=== PATIENT | female | born 1985 | race Caucasian/White ===

== ENCOUNTER 2017-02-10 18:01 | Emergency (ER) | payer OTHER ==
[~2017-02-10 18:01] MED LIST: ABILIFY PO; AMOXICILLIN; AMOXICILLIN500 M1 PO; BACTRIM DS TABL1 TA1 PO; BACTRIM DS TABL1 TAB PO; CIPRO PO; CLARITIN10 M1 PO; CLEOCIN PO; FIORICET1 TAB PO; FLEXERIL10 M1 PO; FLEXERIL10 MG PO; IBUPROFEN800 MG PO; KEFLEX PO; KLONOPIN0.5 MG PO; LORTAB 10-5001 EACH PO; MEDROL DOSEPAK4 MG PO; MOTRIN400 MG PO; NAPROSYN500 MG PO; NO MEDICATIONS; PHENERGAN25 MG PO; PRENATAL MULITV1 TAB; PYRIDIUM PO; ULTRAM PO; VOLTAREN75 MG PO; WELLBUTRIN PO; ZITHROMAX PO; ZOFRAN ODT4 MG PO; ZOFRAN PO
== END 2017-02-10 18:24 | disposition home or self-care (01) ==
LOC: CFTX 18:01
DX: J02.0 Streptococcal pharyngitis (principal); F31.9 Bipolar disorder, unspecified; Z91.040 Latex allergy status
CPT/HCPCS: 87880; 96372; 99283; J0561; J1100

== ENCOUNTER 2017-04-26 12:00 | Inpatient (IN) | payer OTHER ==
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
--- NOTE | ~2017-04-26 | HP ---
Unit #: [id number] #: [id number] Patient: RUBY PICHARDO [id number] [place] [address] [id number] I MR#: [id number] NAME: RUBY PICHARDO ROOM: [facility] Age: 31 Sex: F Admission Date: 04/26/2017 : 1985 Attending Physician: Braxton Kwong M.D. Admitting Physician: Braxton Kwong M.D. Primary Care Physician: Tyler Pichardo M.D. HISTORY AND PHYSICAL HISTORY OF PRESENT ILLNESS Ruby is a 31 year old admitted to 2 [facility] with depression, increased anxiety and verbalizing wanting to hurt herself. PAST MEDICAL HISTORY 1. Seizure disorder 2. History of migraines 3. Obstructive sleep apnea 4. Morbid obesity PAST SURGICAL HISTORY x2 ALLERGIES No known drug allergies. SOCIAL HISTORY She does not smoke. Drinks alcohol rarely and denies illicit drug use. FAMILY HISTORY Medically noncontributory. REVIEW OF SYSTEMS CONSTITUTIONAL: No fever or chills. HEENT: Denies any sore throat, ear pain or runny nose. CARDIOVASCULAR: Denies chest pain, irregular heart rhythm or palpitations. CHEST: Denies shortness of breath or cough. No hemoptysis. GASTROINTESTINAL: Denies nausea, vomiting, diarrhea or chronic constipation. ENDOCRINE: Denies history of increased thirst or urination. No recent significant weight loss or gain. GENITOURINARY: Denies dysuria, frequency, or hematuria. SKIN: Denies any rashes. HEMATOLOGIC: Denies history of increased bleeding or bruising. MUSCULOSKELETAL: Denies any hot, swollen joints. No generalized muscle pain. NEUROLOGIC: Denies problems with vision or speech. No frequent, severe headaches. No numbness, tingling or weakness in any extremities. Denies loss of bladder or bowel control. CURRENT MEDICATIONS 1. Carafate 1 gram a.c. and h.s. Unit #: [id number] #: [id number] Patient: RUBY PICHARDO 2. Desyrel 50 mg q.h.s. 3. Protonix 40 mg b.i.d. 4. Topamax 100 mg b.i.d. 5. Milk of Magnesia p.r.n. 6. Maalox p.r.n. 7. Tylenol p.r.n. 8. Imitrex p.r.n. 9. Klonopin 1 mg t.i.d. 10. Paxil 20 mg q day PHYSICAL EXAMINATION GENERAL: Alert, well-nourished, in no apparent distress. VITAL SIGNS: Blood pressure 124/78, heart rate 80, respirations 16, temperature 98.6. WEIGHT: 220 pounds. HEIGHT: 5 foot 4 inches SKIN: Warm and dry without rash or lesion. HEENT: Normocephalic. TMs not viewed. Oral and nasal passages clear. Conjunctivae clear. Pupils equal, round and reactive to light and accommodation. Extraocular movements intact. NECK: Supple without lymphadenopathy or thyromegaly. HEART: Regular rate and rhythm without murmur. LUNGS: Clear. ABDOMEN: Soft, nontender. : Not done. EXTREMITIES: No evidence of cyanosis, clubbing or edema. Moves all extremities without focal deficit. NEUROLOGICAL: Grossly within normal limits. Cranial Nerves: II: Visual aguiar are intact. III, IV AND : Extraocular movements are intact. Pupils are equal, round and reactive to light. V: Facial sensation is grossly normal. VII: Facial movements and expression are normal. VIII: Auditory acuity grossly intact. IX, X: Uvula is midline. Phonation is normal. XI: Patient shrugs shoulders and turns head normally. XII: Tongue protrudes in the midline. Sensory and Motor Function: Sensory and motor sensation is grossly normal. Motor: moves all extremities well. Coordination: Gait is normal. Deep Tendon Reflexes: Intact. IMPRESSION Psychiatric admission RECOMMENDATIONS PSYCHIATRIC: Per psychiatrist. MEDICAL: I see no contraindications to participating in facility's activities. MEDICAL PROGNOSIS Good. MEDICAL CONDITION Stable. Unit #: [id number] #: [id number] Patient: RUBY PICHARDO Dictated by... Vonnie Hodge P.A.-C. for Ana Laura Mckinney/sue TD: 04/27/2017 01:35 JOB #: [id number] HISTORY AND PHYSICAL Page 1 of 1 X Vonnie Hodge X HISTORY AND PHYSICAL
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
[2017-04-27 10:15] LABS: BASOPHIL# 0.1 X10e3 (0-0.3); BASOPHIL% 0.9 % (0-2.5); EOSINOPHIL# 0.2 X10e3 (0-0.7); EOSINOPHIL% 2.3 % (0.0-7.0); HEMATOCRIT 38.6 % (35.0-45.0); HEMOGLOBIN 12.7 gm/dL (12.0-16.0); LYMPHOCYTE# 2.3 X10e3 (1.0-3.5); LYMPHOCYTE% 33.3 % (17.0-45.0); MEAN CELL VOLUME 86.1 FL (83-96); MEAN CORPUSCULAR HEMOGLOBIN 28.3 PG (28-34); MEAN CORPUSCULAR HGB CONC 32.9 g/dL (30-36); MEAN PLATELET VOLUME 8.4 FL (6.5-11.5); MONOCYTE# 0.4 X10e3 (0-1.0); MONOCYTE% 6.3 % (3.0-12.0); NEUTROPHIL% 57.2 % (40-75); PLATELET COUNT 236 X10e3 (140-420); RED BLOOD COUNT 4.49 X10e (3.90-5.30); RED CELL DISTRIBUTION WIDTH 14.6 % (11.0-15.5)
[2017-04-27 10:18] LABS: DIFF IND NO
[2017-04-27 10:36] LABS: ALBUMIN SERUM 3.6 g/dL (3.5-5.0); BILIRUBIN,TOTAL 0.5 mg/dL (0.2-2.0); BUN/CREATININE RATIO 11.11; CALCIUM SERUM 9.3 mg/dL (8.4-10.2); CREATININE SERUM 0.9 mg/dL (0.6-1.4); GLOM FILT RATE Estimated 85.3 mL/min (>60); POTASSIUM 4.3 mmol/L (3.5-5.1); PROTEIN TOTAL SERUM 6.8 g/dL (6.0-8.3)
[2017-04-28 09:41] LABS: URINE APPEARANCE CLOUDY; URINE BILIRUBIN NEG (NEG); URINE BLOOD 3+ (NEG); URINE COLOR YELLOW; URINE GLUCOSE NEG (NEG); URINE KETONE NEG (NEG); URINE LEUKOCYTE ESTERASE NEG (NEG); URINE NITRATE NEG (NEG); URINE PROTEIN NEG (NEG); URINE SPECIFIC GRAVITY 1.009 (1.003-1.035); URINE UROBILINOGEN 0.2 MG/DL (NEG)
[2017-04-28 09:48] LABS: URINE BACTERIA AUWI 2+ (NEGATIVE); URINE SQUAMOUS EPITHELIAL CELL MOD /[HPF]; UWBCS1 AUWI 25-50 (0-5)
[2017-04-28 10:07] LABS: URINE MUCUS PRESENT
[2017-04-28 11:23] LABS: AMPHETAMINE NEG (NEG); BARBITURATES NEG (NEG); BENZODIAZEPINES NEG (NEG); COCAINE NEG (NEG); MARIJUANA NEG (NEG); OPIATES NEG (NEG); TRICYCLIC ANTIDEPRESSANTS NEG (NEG); U METHADONE NEG (NEG)
== END 2017-04-28 14:55 | disposition home or self-care (01) | DRG 885 ==
LOC: P2L 15:38
PROVIDERS: Psychiatry & Neurology Psychiatry
DX: F33.9 Major depressive disorder, recurrent, unspecified (principal); R45.851 Suicidal ideations; G40.909 Epilepsy, unspecified, not intractable, without status epilepticus; E66.9 Obesity, unspecified; K21.9 Gastro-esophageal reflux disease without esophagitis; G47.33 Obstructive sleep apnea (adult) (pediatric)
CPT/HCPCS: 80053; 80307; 81003; 84703; 85025

== ENCOUNTER 2017-05-11 15:19 | Emergency (ER) | payer OTHER ==
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
== END 2017-05-11 18:05 | disposition home or self-care (01) ==
LOC: CED 15:19 → CFTX 15:19
DX: S92.411A Displaced fracture of proximal phalanx of right great toe, initial encounter for closed fracture (principal); L03.317 Cellulitis of buttock; F31.9 Bipolar disorder, unspecified; G40.909 Epilepsy, unspecified, not intractable, without status epilepticus; V89.2XXA Person injured in unspecified motor-vehicle accident, traffic, initial encounter; Y92.410 Unspecified street and highway as the place of occurrence of the external cause
CPT/HCPCS: 29515; 73610; 73630; 99283